=== PATIENT | male | born 1990 | race Caucasian/White ===

== ENCOUNTER 2016-10-17 14:45 | Emergency (ER) | payer BC ==
--- NOTE | 2016-10-17 16:47 | EDM.PDOC ---
ED HISTORY OF PRESENT ILLNESS - General Chief Complaint: Cardiovascular Problem Stated Complaint: HEART PALPITATIONS/SENT BY [facility] Time Seen by Provider: 10/17/16 14:52 Source of Information: Reports: Patient, RN notes reviewed - History of Present Illness INITIAL COMMENTS - FREE TEXT/NARRATIVE: 26-year-old male comes in with palpitations. He onset of this last evening it continues today. He feels like his heart is "skipping beats rather frequently up to about once per minute. He's not having chest pain other than that uncomfortable sensation of what he is feeling with the irregularity. No cough shortness of breath fever chills or other unusual symptomatology. He is not diabetic has no history of hypertension or heart disease personally. There is a strong family history of heart disease. He does drink some but not excessive coffee. - Related Data Allergies/ADRs: Allergies Allergy/AdvReac Type Severity Reaction Status Date / Time seasonal allergies Allergy Sneezing Uncoded 10/17/16 15:02 Home Meds: Home Meds . [No Known Home Meds] 10/17/16 [History] Past Medical History - Past Health History Medical/Surgical History: Denies Medical/Surgical History Social & Family History - Family History Family Medical History: Noncontributory - Tobacco Use Smoking Status *Q: Never Smoker - Caffeine Use Caffeine Use: Reports: Coffee - Recreational Drug Use Recreational Drug Use: No ED ROS GENERAL - Review of Systems Review Of Systems: See Below Constitutional: Denies: fever, chills, diaphoresis HEENT: Reports: No symptoms Respiratory: Denies: shortness of breath, wheezing, pleuritic chest pain Cardiovascular: Reports: Palpitations. Denies: Chest pain, Lightheadedness, Syncope GI/Abdominal: Denies: Abdominal pain, Nausea, Vomiting Musculoskeletal: Reports: no symptoms Skin: Reports: no symptoms Neurological: Reports: no symptoms ED EXAM, GENERAL - Physical Exam Exam: See Below General Appearance: alert, no apparent distress Nose: normal inspection Throat/Mouth: Normal inspection Head: atraumatic. No: facial swelling Neck: supple, full range of motion Respiratory/Chest: no respiratory distress, lungs clear, normal breath sounds Cardiovascular: regular rate, rhythm GI/Abdominal: soft, non tender Extremities: normal inspection, normal range of motion. No: pedal edema, leg pain Neurological: alert, oriented, no motor/sensory deficits Skin Exam: Warm, Dry, Normal color EKG INTERPRETATION EKG Date: 10/17/16 Rhythm: other (normal sinus rhythm with occasional PAC noted) [place]: normal P-wave: present QRS: normal Course - Vital Signs Last Recorded V/S: Last Vital Signs Temp 97.8 F 10/17/16 14:50 Pulse 92 10/17/16 14:50 Resp 20 10/17/16 14:50 BP 171/91 H 10/17/16 14:50 Pulse Ox 99 10/17/16 14:50 - Orders/Labs/Meds Orders: Active Orders 24 hr Category Date Time Status EKG 12 Lead [EKG Documentation Completion] [RC] STAT Care 10/17/16 15:29 Active Labs: Laboratory Tests 10/17/16 10/17/16 Range/Units 15:40 15:40 WBC 8.91 (4.23-9.07) K/mm3 RBC 5.22 (4.63-6.08) M/mm3 Hgb 15.7 (13.7-17.5) gm/L Hct 43.8 (40.1-51.0) % MCV 83.9 (79.0-92.2) fl MCH 30.1 (25.7-32.2) pg MCHC 35.8 H (32.2-35.5) g/dl RDW Std Deviation 38.2 (35.1-43.9) fL Plt Count 296 (163-337) K/mm3 MPV 10.3 (9.4-12.3) fl Neut % (Auto) 66.1 (34.0-67.9) % Lymph % (Auto) 23.1 (21.8-53.1) % [place] % (Auto) 8.9 (5.3-12.2) % Eos % (Auto) 1.2 (0.8-7.0) Baso % (Auto) 0.4 (0.1-1.2) % Neut # 5.88 H (1.78-5.38) K/mm3 Lymph # 2.06 (1.32-3.57) K/mm3 [place] # 0.79 (0.30-0.82) K/mm3 Eos # 0.11 (0.04-0.54) K/mm3 Baso # 0.04 (0.01-0.08) K/mm3 Sodium 140 (136-145) mEq/L Potassium 3.9 (3.5-5.1) mEq/L Chloride 103 (98-107) mEq/L Carbon Dioxide 29 (21-32) mEq/L Anion Gap 11.9 (5-15) BUN 13 (7-18) mg/dL Creatinine 1.1 (0.7-1.3) mg/dL Est Cr Clr Drug Dosing 100.87 mL/min Estimated GFR (MDRD) > 60 (>60) mL/min BUN/Creatinine Ratio 11.8 L (14-18) Glucose 103 (74-106) mg/dL Calcium 9.4 (8.5-10.1) mg/dL Total Bilirubin 0.4 (0.2-1.0) mg/dL AST 29 (15-37) U/L ALT 78 H (16-63) U/L Alkaline Phosphatase 97 (46-116) U/L Total Protein 7.7 (6.4-8.2) g/dl Albumin 4.2 (3.4-5.0) g/dl Globulin 3.5 gm/dL Albumin/Globulin Ratio 1.2 (1-2) - Re-Assessments/Exams Free Text/Narrative Re-Assessment/Exam: 10/17/16 17:04 cardiac cath rn did show somewhat frequent PACs. These were narrow complex, no PVCs noted. Blood pressure was mildly high initially but that did come down to a more normal range with time. This came back relatively normal. I am going to put him on low dose metoprolol 25 mg twice a day for now, discharge instructions as documented Departure - Departure Time of Disposition: 16:44 Disposition: Home, Self-Care 01 Condition: good Clinical Impression: Premature atrial beats Instructions: Premature Atrial Contraction Referrals: PCP,None [Primary Care Provider] - Forms: ED Department Discharge Additional Instructions: drink plenty of water to maintain hydration, regulate caffeine intake as needed , metoprolol 25 mg or one half of a 50 mg tablets twice daily, planto take that for several days and then try to taper to once daily and then discontinue as tolerated, I recommend getting an automatic blood pressure cuff to check your blood pressure and heart rate about twice a day, keep a log to record that for your regular medical provider as needed, followup with your regular medical provider as needed, return to ED as needed - My Orders Last 24 Hours: My Active Orders 10/17/16 15:29 EKG 12 Lead [EKG Documentation Completion] [RC] STAT - Assessment/Plan Last 24 Hours: My Active Orders 10/17/16 15:29 EKG 12 Lead [EKG Documentation Completion] [RC] STAT
[2016-10-17 17:10] VITALS: BP 142/84
== END 2016-10-17 16:54 | disposition home or self-care (01) ==
LOC: JD.ED 14:45
DX: I49.1 Atrial premature depolarization (principal)
CPT/HCPCS: 36415; 80053; 85025; 93005; 99283; 99285-25